=== PATIENT | female | born 1970 | race Caucasian/White ===

== ENCOUNTER → 2021-01-22 | Outpatient (CLI) | payer OTHER ==
[~2021-01-22] MED LIST: LIDOCAINE 1% Multi-Dose 20 ML VIAL. INJ ONE
--- NOTE | 2021-01-22 17:31 | RAD ---
MG DIAGNOSTICUNILAT MAMMO, US BREAST BIOPSY 1ST LESION Clinical Indication: Right breast microcalcifications 7:00 position 5 cm from the nipple. Comparison: Bilateral diagnostic mammogram and right breast ultrasound December 28, 2020, [facility] [place]. Findings: The group of numerous microcalcifications of the right breast are well seen by ultrasound. Procedure: Relative benefits, risks including bleeding, infection, damage to blood vessels, and pain; and altern atives to the procedure were discussed and written informed consent was obtained. With sterile technique, local anesthesia and ultrasound guidance, percutaneous biopsy was performed w ith a 14-gauge needle and 4 passes were obtained through the target. A specimen radiograph is obtaine d that demonstrates a few microcalcifications in the samples. 2 additional passes were obtained throu gh the target. Biopsy clip is deployed, ribbon marker. Needle removed, hemostasis achieved. Post procedure CC and ML views were obtained. The biopsy clip is central in the group of microcalcifi cations. The procedure was well tolerated. There is no immediate complication. Impression: Ultrasound guided breast biopsy. Pathology is pending. Electronically signed by: Napoleon Dolan MD (01/22/2021 5:29 PM) [id number]
--- NOTE | 2021-01-24 15:14 | PATHOLOGY ---
[facility] Accession Number: [id number] . 01 Material submitted: . breast - RIGHT BREAST TISSUE 7:00 5CMFN. Modifiers: right . 01 Clinical history: . RIGHT BREAST BIOPSY . 02 Diagnosis: Breast tissue, right breast tissue 7:00 5 cm from nipple needle biopsies: - Ductal carcinoma in situ, high-grade, solid and focal cribriform type, with comedo-type necrosis. - Focal reactive stromal fibrosis with hemosiderin laden macrophages and focal dystrophic calcification. (JPM:moise; 01/24/2021) [facility] 01/24/2021 1450 Local . 02 Comment: Sections of the right breast tissue 7:00 needle biopsy focally reveal ducts distended by an atypical epithelial proliferation having a solid and focal cribriform architecture. The epithelial cells show moderate to focal marked nuclear atypia. There are foci of comedo-type necrosis. The surrounding stroma appears reactive. In addition, there is a focus of stromal fibrosis containing hemosiderin macrophages and showing focal dystrophic calcification. The findings are supportive of the diagnosis of high-grade ductal carcinoma in situ. There is no evidence of invasive carcinoma within this biopsy. Breast prognostic studies are being obtained, the results of which will be reported separately. The case is also examined by Dr. Wade, who concurs with the diagnosis. (JPM:moise; 01/24/2021) . 02 Electronically signed: . Tank Moran MD, Pathologist NPI- [id number] . 01 Gross description: . The specimen is received in formalin, labeled "Head, Juli L and RT breast 7:00" and per the requisition "right breast tissue 7:00 5 cm FN". It consists of multiple pardo-yellow, irregular to cylindrical core tissue fragments ranging from 0.2-1.8 cm in greatest dimension. The specimen is entirely submitted between sponges in A1-A2. . Time removed from patient: 1508 on 01/22/21 Time in formalin: 1510 on 01/22/21 Time removed from formalin: 2340 on 01/23/21 Total time in formalin: 32 hours 30 minutes (MRF; 01/23/2021) [facility] 01/23/2021 1440 Local . 02 Pathologist provided ICD-10: D05.11, N60.31 . 02 CPT . 578683 Specimen Comment: A courtesy copy of this report has been sent to [phone], [phone] Specimen Comment: [id number] Specimen Comment: Report sent to / DR ANGUIANO [facility]: [facility] [address] [id number] MD Jasper Wade MD Phone: [phone] [facility]formed [facility]: [facility] [address] [place], [place] [id number] MD Tank Moran MD Phone: [phone]
== END | disposition home or self-care (01) ==
LOC: US 13:52
PROVIDERS: ATTEND Surgery
DX: R92.0 Mammographic microcalcification found on diagnostic imaging of breast (principal); R92.8 Other abnormal and inconclusive findings on diagnostic imaging of breast
CPT/HCPCS: 19083; 77065; A4648